=== PATIENT | female | born 1995 | race Caucasian/White ===

== ENCOUNTER 2025-01-20 21:00 | Observation (INO) | payer BC, SELFPAY ==
[2025-01-20 21:04] VITALS: BP 120/62; BMI 29.5
[2025-01-20 21:34] LABS: Urine Character Clear (Clear)
== END 2025-01-20 21:56 | disposition home or self-care (01) ==
LOC: LDRP 21:00
PROVIDERS: ADMITTING PHYSICIAN Obstetrics & Gynecology
DX: O36.8130 Decreased fetal movements, third trimester, not applicable or unspecified (principal); Z3A.30 30 weeks gestation of pregnancy
CPT/HCPCS: 59025; 81003; 87086; G0378

== ENCOUNTER 2025-03-27 19:13 | Inpatient (IN) | payer BC, SELFPAY ==
[2025-03-27 19:23] VITALS: BP 118/73; BMI 33.8
[2025-03-27] MEDS: CYTOTEC 25 MICROGRAM VAG (19:46)
[2025-03-27 19:56] LABS: Hematocrit 32.8 % (37.0-47.0); Hemoglobin 11.7 g/dL (12.0-16.0); Mean Corp Hgb Conc. 35.7 g/dL (33.0-37.0); Mean Corpuscular Volume 83.9 fL (81.0-99.0); Nucleated Red Blood Cells % 0 %; Platelet Count 154 10^3/uL (130-400); Red Cell Dist. Width 12.7 % (11.5-14.5)
[2025-03-28] MEDS: CYTOTEC 50 MICROGRAM PO ×3 (03:53→08:47)
[2025-03-28] MEDS: LR 1000 IV ×3 (12:39→21:30)
[2025-03-28] MEDS: CYTOTEC PO ×2 (14:50→18:37)
[2025-03-28] MEDS: STADOL 1 MG IV (14:57)
[2025-03-28] MEDS: PITOCIN 30 UNITS/NSS 500 ML IV (16:41)
[2025-03-28] MEDS: SUBLIMAZE 100 MCG EPIDURAL (18:10)
[2025-03-28] MEDS: FENTANYL/BUPIVACAINE 100 EPIDURAL (18:11)
[2025-03-29] MEDS: LR 1000 IV ×4 (00:45→17:55)
[2025-03-29] MEDS: FENTANYL/BUPIVACAINE 100 EPIDURAL ×2 (02:45→10:24)
--- NOTE | 2025-03-29 10:44 | W.PN.ANES ---
Anesthesia Note
- -
03/29/25 10:44
Patient experiencing breakthrough epidural pain mostly at upper portion of abdomen. Epidural otherwise has been working well. Negative aspiration from catheter. Bolus'd 8cc 0.25% bupivicaine with improvement in symptoms
[2025-03-29] MEDS: BICITRA 30 ML PO (17:52)
[2025-03-29] MEDS: TYLENOL 975 MG PO (17:52)
[2025-03-29 19:23] LABS: Cord VBG B.E. - POC -5.1 mmol/L; Cord VBG HCO3 - POC 20 mmol/L; Cord VBG O2 Sat % - POC 54.8 %; Cord VBG pCO2 - POC 35 mmHg; Cord VBG pH - POC 7.35; Cord VBG pO2 - POC 30 mmHg
[2025-03-29] MEDS: PITOCIN 30 UNITS/NSS 500 ML IV (19:25)
[2025-03-29] MEDS: ANCEF 10 IV (19:55)
[2025-03-29] MEDS: ZITHROMAX INFUSION 250 IV (19:55)
--- NOTE | 2025-03-29 20:00 | W.PN.ANS.POP ---
Anesthesia Post Operative
- Anesthesia Post Op Note
Vital Signs Stable-See Nursing Note: Yes
Airway Patent: Yes
Adequate Pain Control: Yes
Change in Mental Status: Yes
Current Postoperative Nausea & Vomiting: Yes
Anesthesia Complications: No
General Anesthetic Recall: No
Unplanned Admission: No
Post Op Hydration Adequate: No
- -
Epidural catheter removed post c/s, tip intact. No complications
[2025-03-29] MEDS: COLACE PO (20:36)
[2025-03-30] MEDS: TORADOL 15 MG IV ×4 (00:30→18:30)
[2025-03-30 06:02] LABS: Hematocrit 26.0 % (37.0-47.0); Hemoglobin 9.2 g/dL (12.0-16.0); Mean Corp Hgb Conc. 35.4 g/dL (33.0-37.0); Mean Corpuscular Volume 86.1 fL (81.0-99.0); Platelet Count 123 10^3/uL (130-400); Red Cell Dist. Width 13.0 % (11.5-14.5)
[2025-03-30] MEDS: FLUSH (NSS) 3 FLUSH IV (06:35)
[2025-03-30] MEDS: PRENATAL PLUS 1 TABLET PO (08:06)
[2025-03-30] MEDS: COLACE 100 MG PO ×2 (08:06→20:19)
[2025-03-31] MEDS: MOTRIN 600 MG PO ×4 (01:00→21:24)
[2025-03-31] MEDS: TYLENOL 650 MG PO ×4 (05:01→21:24)
[2025-03-31] MEDS: PRENATAL PLUS 1 TABLET PO (08:47)
[2025-03-31] MEDS: COLACE 100 MG PO ×2 (08:47→19:46)
[2025-04-01] MEDS: TYLENOL 650 MG PO (05:36)
[2025-04-01] MEDS: MOTRIN 600 MG PO (05:36)
[2025-04-01] MEDS: COLACE 100 MG PO (08:05)
[2025-04-01] MEDS: PRENATAL PLUS 1 TABLET PO (08:05)
--- NOTE | 2025-04-01 08:53 | W.DS.TRANS ---
DC Summary - [facility]
-
Discharge Instructions:
Discharge Diagnosis/Procedures 40 wks, elective induction, epidural,
Cook catheter, arrest of descent; primary low
transverse section
Diet Regular
Activity No strenuous activity
Driving Restrictions No driving for 2 weeks
Bathing Restrictions OK to Shower
Instructions:
Stand-Alone Forms: LDRP Delivery
Changes to Home Medications: No
Discharge Medications:
DC Medications w/original date entered in [facility]
ndhaeqpu-kgm-Vp-FA 1 mg tablet 1 tab PO DAILY 01/20/25
acetaminophen 325 mg tablet 650 mg (2 x 325 mg) PO Q4HPRN PRN mild pain #0 tabs 04/01/25
docusate sodium 100 mg capsule 100 mg PO BID #0 caps 04/01/25
ibuprofen 600 mg tablet 600 mg PO Q6HPRN PRN cramps #30 tabs 04/01/25
vitamins with calcium no.72-iron 27 mg-folic acid 1 mg tablet (WesTab Plus) 1 tab PO DAILY #0 tabs 04/01/25
sennosides 8.6 mg tablet (Wendi-tasha) 17.2 mg (2 x 8.6 mg) PO HSPRN PRN constipation #0 tabs 04/01/25
simethicone 80 mg chewable tablet 80 mg PO TIDPRN PRN flatulence #0 tabs 04/01/25
Home Medication Changes
Pending Results: Yes (Placenta path)
Total time spent discharging patient (in min): 20
[2025-04-01 14:48] LABS: Syphilis/T. pallidum Ab Reflex Negative (Negative)
== END 2025-04-01 11:15 | disposition home or self-care (01) | DRG 787 ==
LOC: LDRP 19:13
PROVIDERS: Obstetrics & Gynecology; Student in an Organized Health Care Education/Training Program; ADMITTING PHYSICIAN Obstetrics & Gynecology
PROC: 3E0P7VZ Introduction of Hormone into Female Reproductive, Via Natural or Artificial Opening (ICD-10-PCS; 2025-03-27)
PROC: 0U7C7DJ Dilation of Cervix with Intraluminal Device, Temporary, Via Natural or Artificial Opening (ICD-10-PCS; 2025-03-28)
PROC: 10D00Z1 Extraction of Products of Conception, Low, Open Approach (ICD-10-PCS; 2025-03-29)
PROC: 10907ZC Drainage of Amniotic Fluid, Therapeutic from Products of Conception, Via Natural or Artificial Opening (ICD-10-PCS; 2025-03-29)
PROC: 10H07YZ Insertion of Other Device into Products of Conception, Via Natural or Artificial Opening (ICD-10-PCS; 2025-03-29)
DX: O69.81X0 Labor and delivery complicated by cord around neck, without compression, not applicable or unspecified (principal); O98.32 Other infections with a predominantly sexual mode of transmission complicating childbirth; Z3A.39 39 weeks gestation of pregnancy; Z37.0 Single live birth; O62.1 Secondary uterine inertia; A60.00 Herpesviral infection of urogenital system, unspecified; O90.81 Anemia of the puerperium; D64.9 Anemia, unspecified; O32.8XX0 Maternal care for other malpresentation of fetus, not applicable or unspecified
CPT/HCPCS: 36415; 85025; 85027; 86780; 86850; 86900; 86901; 88307